=== PATIENT | male | born 1995 | race Caucasian/White ===

== ENCOUNTER 2023-06-24 20:34 | Emergency (ER) | payer OTHER ==
[~2023-06-24] VITALS: Ht 175.3 cm; Wt 63.5 kg
[2023-06-24 20:49] VITALS: BP 135/84; PULSE 90; RESP 16; TEMP 98.2; O2SAT 97
[2023-06-24 21:32] VITALS: O2SAT 98
[2023-06-24] MEDS: KETOROLAC 30 MG/ML VIAL IM ONE (21:38)
[2023-06-24] MEDS: BACITRACIN OINT 500 UNITS/GM PKT TP ONE (21:55)
[2023-06-24] MEDS ORDERED: BACTO TP (21:58)
[2023-06-24] MEDS ORDERED: ACET-10509 PO (21:58)
[2023-06-24] MEDS ORDERED: IBUP-2213 PO (21:58)
== END 2023-06-24 22:30 | disposition home or self-care (01) ==
LOC: MED 20:34
DX: S92.352A Displaced fracture of fifth metatarsal bone, left foot, initial encounter for closed fracture (principal); Z79.899 Other long term (current) drug therapy; V98.8XXA Other specified transport accidents, initial encounter; Y93.89 Activity, other specified; Y92.89 Other specified places as the place of occurrence of the external cause; Y99.8 Other external cause status
CPT/HCPCS: 29515; 73600; 73630; 96372; 99284; J1885; 90715